=== PATIENT | female | born 1970 | race Caucasian/White ===

== ENCOUNTER 2020-08-17 05:28 | Day surgery (SDC) | payer BC ==
[2020-08-16 10:44] VITALS: BMI 21.4
[2020-08-17 12:17] VITALS: TEMP 97.7
[2020-08-17] MEDS ORDERED: ACETAMINOPHEN INJECTION 100 ML IVPB ONE (12:26)
[2020-08-17] MEDS ORDERED: ACETAMINOPHEN 1000 MG/100 ML VIAL (NON FORMULARY) IVPB ONE (12:45)
[2020-08-17] MEDS ORDERED: ACETAMINOPHEN 325 MG TABLET (FP) PO PRN (13:47)
[2020-08-17] MEDS ORDERED: oxyCODONE HCL 5 MG TABLET PO PRN (13:47)
[2020-08-17] MEDS ORDERED: ONDANSETRON 4 MG/2 ML VIAL IVPUSH PRN (13:47)
[2020-08-17] MEDS ORDERED: MIDAZOLAM HCL 2 MG/2 ML SINGLE DOSE VIAL ONE (13:59)
[2020-08-17] MEDS ORDERED: PROPOFOL 20 ML ONE (13:59)
[2020-08-17] MEDS ORDERED: LACTATED RINGERS SOLUTION 1,000 ML IV SCH (14:00)
[2020-08-17] MEDS ORDERED: DESFLURANE GAS 240 ML BOTTLE IH ONE (14:27)
[2020-08-17] MEDS ORDERED: ceFAZolin 2 GRAM PREMIX BAG IVPB ONE (14:40)
[2020-08-17] MEDS ORDERED: ceFAZolin SODIUM 1 GM VIAL ONE (14:43)
[2020-08-17] MEDS ORDERED: DEXAMETHASONE SOD PHOSPHATE 4 MG/1 ML VIAL ONE (14:43)
[2020-08-17] MEDS ORDERED: KETOROLAC TROMETHAMINE 30 MG/1 ML VIAL ONE (15:42)
[2020-08-17] MEDS ORDERED: oxyCODONE HCL 5 MG TABLET ONE (17:40)
[2020-08-17 18:43] VITALS: BP 146/75; PULSE 96
== END 2020-08-17 19:00 | disposition home or self-care (01) ==
LOC: JASU-SURG 05:28
PROVIDERS: ATTEND Plastic Surgery
PROC: 0HWT0JZ Revision of Synthetic Substitute in Right Breast, Open Approach (ICD-10-PCS; principal; 2020-08-17 13:15)
DX: T85.44XA Capsular contracture of breast implant, initial encounter (principal); N64.4 Mastodynia
CPT/HCPCS: 82962; 88300-TC; 88304-TC; 94760; J0131